=== PATIENT | male | born 1980 | race Hispanic/Latino ===

== ENCOUNTER 2018-09-30 10:38 | Emergency (ER) | payer BC ==
[2018-09-30 11:15] VITALS: RESP 18
[2018-09-30] MEDS ORDERED: Tdap Vaccine 0.5 ml Vial (10-64 yrs) IM ONE ×2 (11:25→14:10)
[2018-09-30] MEDS ORDERED: Lidocaine 1% Inj (20ml) IJ ONE (12:13)
[2018-09-30] MEDS ORDERED: Lidocaine 1% Inj (20ml) INFIL ONE (12:26)
[2018-09-30] MEDS ORDERED: Povidone Iodine Topical 10% Sol ONE (12:41)
[2018-09-30] MEDS ORDERED: Silver Sulfadiazine 1% CREAM (50 gm) ONE (13:25)
[2018-09-30] MEDS ORDERED: Absorbable Gelatin Sponge Size 12-7 ONE (13:25)
--- NOTE | 2018-09-30 13:30 | RAD ---
Date of service: 09/30/2018 PROCEDURE: Left Foot Radiographs. HISTORY: trauma COMPARISON: None. FINDINGS: BONES: Normal. No fracture. JOINTS: Normal. SOFT TISSUES: Normal. OTHER FINDINGS: None. IMPRESSION: Normal left foot radiographs.
--- NOTE | 2018-09-30 13:45 | ED PDOC ---
Lower Extremity Pain/Injury Time Seen by Provider: 09/30/18 11:21 Chief Complaint (Nursing): Lower Extremity Problem/Injury Chief Complaint (Provider): Toe injury History Per: Patient History/Exam Limitations: no limitations Current Symptoms Are (Timing): Still Present Additional Complaint(s): 38 year old male presents to the ED complaining of injured toes on the left foot. Patient states he was going down some stairs when he slipped injuring the toes. Denies numbness, tingling, other injury, or head injury. PMD: Chiki Sam Past Medical History Reviewed: Historical Data, Nursing Documentation, Vital Signs Vital Signs: Last Vital Signs Temp 98.3 F 09/30/18 11:09 Pulse 81 09/30/18 11:09 Resp 18 09/30/18 11:09 BP 128/89 09/30/18 11:09 Pulse Ox 97 09/30/18 11:09 - Medical History PMH: No Chronic Diseases - Surgical History Surgical History: No Surg Hx - Family History Family History: States: Unknown Family Hx - Social History Current smoker - smoking cessation education provided: No Alcohol: None Drugs: Denies - Home Medications Home Medications: Ambulatory Orders Medication Instructions Recorded Amoxicillin/Clavulanate [Augmentin 1 tab PO BID #20 tab 09/30/18 875 MG-125 MG] Tramadol HCl [Ultram] 50 mg PO BID PRN #7 tablet 09/30/18 - Allergies Allergies/Adverse Reactions: Allergies Allergy/AdvReac Type Severity Reaction Status Date / Time No Known Allergies Allergy Verified 09/30/18 11:09 Review of Systems ROS Statement: Except As Marked, All Systems Reviewed And Found Negative Musculoskeletal: Positive for: Other (Left foot toe injury) Neurological: Negative for: Numbness (or tingling) Physical Exam - Reviewed Nursing Documentation Reviewed: Yes Vital Signs Reviewed: Yes - Physical Exam Appears: Positive for: Non-toxic, No Acute Distress Head Exam: Positive for: ATRAUMATIC, NORMOCEPHALIC Skin: Positive for: Normal Color, Warm, Dry Eye Exam: Positive for: Normal appearance Neck: Positive for: Normal, Painless ROM Pulses-Dorsalis Pedis (L): 2+ Pulses-Dorsalis Pedis (R): 2+ Extremity: Positive for: Capillary Refill (less than 2 seconds), Other (Left great toe with nail bed elevation and nail partially avulsed; left third toe: mild ecchymosis and tenderness; All the toe nails except for the left great toe intact) Neurologic/Psych: Positive for: Alert, Oriented. Negative for: Motor/Sensory Deficits - ECG O2 Sat by Pulse Oximetry: 97 (RA) Pulse Ox Interpretation: Normal Medical Decision Making Medical Decision Making: Initial Impression: Left foot toe injury Initial Plan: --Tetanus 0.5mL IM --Lidocaine 20mL IJ --Left foot X-ray --Percocet 1 tab PO ordered Patient evaluated by podiatry resident. Scribe Attestation: Documented by Peter Rosales acting as a scribe for Benito TORRES. Provider Scribe Attestation: All medical record entries made by the Scribe were at my direction and personally dictated by me. I have reviewed the chart and agree that the record accurately reflects my personal performance of the history, physical exam, medical decision making, and the department course for this patient. I have also personally directed, reviewed, and agree with the discharge instructions and disposition. Disposition - Clinical Impression Clinical Impression: Toe fracture - Patient ED Disposition Is Patient to be Admitted: No - Disposition Referrals: Adalgisa Del Angel DPM [Staff Provider] - Disposition: Routine/Home Disposition Time: 14:00 Condition: STABLE Additional Instructions: ADRIANNA CORTEZ JR, thank you for letting us take care of you today. Your provider was Nic Aguilar III, DO and you were treated for FALL: TOES INJURY. The emergency medical care you received today was directed at your acute sympto ms. If you were prescribed any medication, please fill it and take as directed. It may take several days for your symptoms to resolve. Return to the Emergency Department if your symptoms worsen, do not improve, or if you have any other problems. Please contact your doctor or call one of the physicians/clinics you have been referred to that are listed on the Patient Visit Information form that is included in your discharge packet. Bring any paperwork you were given at discharge with you along with any medications you are taking to your follow up visit. Our treatment cannot replace ongoing medical care by a primary care provider outside of the emergency department. Thank you for allowing the [facility] team to be part of your care today. If you had an X-Ray or CT scan: A Radiologist will review the ED reading if any change in treatment is needed we will contact you. If you had a blood, urine, or wound culture: It will take several days for the results, if any change in treatment is needed we will contact you. If you had an STI test: It will take 48 hours for the results. Please call after 1 week if you have not heard back. Prescriptions: Amoxicillin/Clavulanate [Augmentin 875 MG-125 MG] 1 tab PO BID #20 tab Tramadol HCl [Ultram] 50 mg PO BID PRN #7 tablet PRN Reason: Other Instructions: Toe Fracture (DC) Forms: [employer] ([place]), [facility] ED School/Work Excuse
[2018-09-30] MEDS ORDERED: Silver Nitrate Topical - Stick TOP ONE (14:55)
[2018-09-30] MEDS ORDERED: Silver Nitrate Topical - Stick ONE (15:01)
[2018-09-30] MEDS ORDERED: Oxycodone/Acetaminophen 5/325 mg Tab PO STA (15:53)
--- NOTE | 2018-09-30 16:07 | CP.PCM.CON ---
History of Present Illness - History of Present Illness History of Present Illness: Podiatry consult note for attending, Dr. Del Angel 38 y/o male patient seen and evaluated in the ED. Patient denies any past medical history. Patient states he was going [place] when he slipped and injured his left foot. Patient arrived to the ED with a lifted left hallucal toenail. Patient denies any associated numbness or tingling. Patient denies any fever, nausea, vomiting, shortness of breath, chest pain or posterior calf pain. PMHx: denied by patient PSHx: denied by patient Social Hx: current smoker, denies EOTH or drug use Medications: none Allergies: NKDA Review of Systems - Review of Systems All systems: reviewed and no additional remarkable complaints except Review of Systems: As per HPI Past Patient History - Past Social History Alcohol: None Drugs: Denies - PSYCHIATRIC Hx Substance Use: No Meds Home Medications: Home Medication List Medication Instructions Recorded Confirmed Type Amoxicillin/Clavulanate [Augmentin 1 tab PO BID #20 tab 09/30/18 Rx 875 MG-125 MG] Tramadol HCl [Ultram] 50 mg PO BID PRN #7 tablet 09/30/18 Rx Allergies/Adverse Reactions: Allergies Allergy/AdvReac Type Severity Reaction Status Date / Time No Known Allergies Allergy Verified 09/30/18 11:09 - Medications Medications: Current Medications Oxycodone/Acetaminophen (Percocet 5/325 Mg Tab) 1 tab PO STAT STA Stop: 09/30/18 15:54 Physical Exam - Constitutional Appears: Well, Non-toxic, No Acute Distress - Head Exam Head Exam: ATRAUMATIC, NORMOCEPHALIC - Extremities Exam Additional comments: Left Lower Extremity Exam VASC: DP and PT 2/4 bilaterally, CFT Less than 3 seconds X 5, TG warm to cool, no edema noted NEURO: grossly intact DERM: left hallucal nail bed lifted with active bleeding noted subungually, ecchymosis noted to the proximal nail fold of the 3rd and 4th digits, no open wounds to the remaining digits 2-5, no erythema noted, no edema noted ORTHO: pain on palpation and with range of motion of the left hallux, minimal pain with range of motion of digits 2-5 - Neurological Exam Neurological exam: Alert, Oriented x3 - Psychiatric Exam Psychiatric exam: Normal Affect, Normal Mood Results - Vital Signs Recent Vital Signs: Last Vital Signs Temp 98.3 F 09/30/18 11:09 Pulse 81 09/30/18 11:09 Resp 18 09/30/18 11:09 BP 128/89 09/30/18 11:09 Pulse Ox 97 09/30/18 15:50 Assessment & Plan - Assessment and Plan (Free Text) Assessment: 38 y/o male patient seen and evaluated in the ED. Patient states he was going [place] when he slipped and injured his left foot. Plan: Patient seen and evaluated in the ED Plan discussed with attending Dr. Del Angel Chart and imaging reviewed Left Foot X-ray- possible distal tuft fracture of right hallux; as per final read- no fracture noted Patient educated on risks vs. benefits of removing the right hallucal toenail to examine underlying nail bed Patient given an H-block to numb the right hallux with 1% Lidocaine plain- patient tolerated well Patient hallucal toenail removed with sterile nail tray Upon removal of toenail, laceration deep to bone noted at the tip of the n ailbed, extending the width of the nail bed Wound copiously flushed with saline and betadine and bleeding controlled with pressure, Gelfoam and silver nitrate After control of bleeding, silvadene was applied to the wound and wound was dressed with gauze, kerlix and a compressive Coban dressing Patient was advised to keep the dressing intact, clean and dry until visit to Dr. Del Angel's office Patient was educated on all clinical signs and symptoms of infection Patient provided with a surgical shoe and crutches- patient to WB to the left heal Patient was advised to return to ED immediately if dressing soaked or if any pain out of proportion noted Patient demonstrated verbal understanding Thank you for the consult
[2018-09-30 16:21] VITALS: BP 126/78; PULSE 72; TEMP 98.2
[2018-09-30 19:37] VITALS: O2SAT 97
== END 2018-09-30 16:21 | disposition home or self-care (01) ==
LOC: H.ER 10:38
DX: S92.412A Displaced fracture of proximal phalanx of left great toe, initial encounter for closed fracture (principal); W19.XXXA Unspecified fall, initial encounter; Y92.89 Other specified places as the place of occurrence of the external cause